=== PATIENT | female | born 1955 | race Caucasian/White ===

== ENCOUNTER 2016-10-17 19:09 | Inpatient (IN) | payer MEDICAID ==
[~2016-10-17] VITALS: Ht 165.1 cm; Wt 69.3 kg
--- NOTE | ~2016-10-17 | OP ---
PATIENT NAME: NICO AGUILAR MEDICAL RECORD: [id number] :51 LOCATION:D.M2 D.2108 ADMISSION DATE:10/17/16 SURGEON: CASEY BECKFORD MD DATE OF OPERATION: 10/28/2016 PREOPERATIVE DIAGNOSIS: End-stage renal disease. POSTOPERATIVE DIAGNOSIS: End-stage renal disease. OPERATION PERFORMED: Implantation of PTFE left forearm looped AV graft between the brachial artery and basilic vein. SURGEON: Casey Beckford MD. ANESTHESIA: General via LMA per 3RD MATE and Dr. Cano. REFERRING PHYSICIAN: Sergo Wilder MD. PREOPERATIVE NOTE: Ms. Aguilar is a 61-year-old -[place] female, who has suffered terrible effects of CVA and presented with uremia and was started on dialysis this hospitalization with a tunneled central catheter. I was asked to implant a graft today. This patient has severe contractures of the legs, knees and hips and particularly of the right arm, shoulder and elbow. The left arm has severe contractures of the shoulder and elbow, but probably is usable for dialysis access if we can get a graft there. It will not be possible in this patient to place an access on the axillary veins because of this contracture problem. Noted that the patient does have dilated superficial veins in the arm consistent with some degree of venous hypertension of unknown etiology at this point. PROCEDURE IN DETAIL: Under anesthesia in supine position, the patient was prepped and draped in sterile manner. The arm was abducted at the shoulder as much as possible with continuous gentle traction. The elbow was straightened as much as possible in a similar manner. I examined her with ultrasound using nitroglycerin topical ointment and a proximal venous tourniquet and noted she had rather ample cephalic and basilic venous systems with large median cubital veins. The brachial artery was smaller and thick walled. I thought at first that I might be able to actually just do a brachial artery cephalic vein in the arterial venous fistula. I made a transverse incision across the antecubital space and mobilized the artery and mobilized the vein with the vein went into intense spasm and I eventually abandoned that, it was resected and its stump ligated with 3-0 Vicryl. Medial dissection exposed a very large basilic vein, which joined with a median cubital vein at the antecubital level. I exposed that basilic vein and controlled with Silastic loops. I chose a 4-7 mm Impra PTFE graft with standard wall thickness and no supporting outer rings. I beveled the venous end and anastomosed it end-to-side to the vein with running 6-0 Prolene. I made a counter incision down near the wrist and placed the graft in a subcutaneous tunnel and back in the antecubital space, I occluded the artery with Silastic loops, opened the artery and flushed it proximally and distally with heparinized saline. The 4-mm diameter portion of the graft was shortened and beveled and anastomosed end-to-side to the artery with running 6-0 Prolene. Fibrin glue was used to seal that suture line. With release of clamps and loops, excellent flow immediately developed in the new AV graft. Doppler examination demonstrated continuous pulsatile flow in the proximal brachial OPERATIVE REPORT [id number] NICO AGUILAR artery. The distal brachial artery exhibited damped monophasic flow, which did improve considerably with digital occlusion of the graft. The radial artery at the wrist with the graft occluded had pretty good pulsatile flow and a patent palmar arch. This was severely diminished with release of the occlusion and filling of the graft. I am concerned this patient may have a problem with distal ischemia or steal syndrome and will need to be observed for that. The patient's wounds were irrigated with Ancef/gentamicin solution, irrigated and infiltrated with 0.25% Marcaine without epinephrine. The wounds were closed with interrupted inverted 3-0 Vicryl and running intracuticular 4-0 Monocryl and Dermabond glue. They were dressed with Maxorb Ag, Tegaderm and Cavilon skin prep. The patient was then awakened and taken to the recovery room with a functioning AV graft. All sponges, instruments and needles were accounted for. Blood loss was insignificant and unreplaced. No drain was used and no surgical specimen was submitted for histopathology. PLAN: The patient will resume her preoperative medications, diet and dialysis schedule and can be discharged per nephrology when she is believed to reach a maximal hospital benefit. Her wounds can be checked in dialysis and I see no reason for her to have to be brought back to my office other than p.r.n. The initial waterproof dressings should be left in place if possible for 7-10 days. After that, they are either removed or fall off and the wounds should be washed daily with Hibiclens and covered with clean and dry gauze. The loop fistula can be used in 2-3 weeks at the discretion of her ski patrol. TRANSINT:[id number] Voice Confirmation ID: [id number] DOCUMENT ID: [id number] CASEY BECKFORD MD CC: [id number] DICTATION DATE: 10/28/161638 CAR DELIVERER: 10/28/16 221 ADM IN [facility] [address] [place] [address]
[2016-10-17 19:00] VITALS: BP 172/91
[2016-10-17] MEDS ORDERED: BUSPAR 15 MG TA15 MG PO (19:44)
[2016-10-17] MEDS ORDERED: LIPITOR20 MG PO (19:44)
[2016-10-17] MEDS ORDERED: GLIMEPIRIDE2 MG PO (19:45)
[2016-10-17] MEDS ORDERED: PLAVIX75 MG PO (19:45)
[2016-10-17] MEDS ORDERED: NORVASC5 MG PO (19:45)
[2016-10-17] MEDS ORDERED: BAYER CHEWABLE81 MG PO (19:46)
[2016-10-17] MEDS ORDERED: PRAVACHOL20 MG (19:46)
[2016-10-17 20:21] LABS: BASOPHILS 0.3 % (0-2); HEMATOCRIT 20.6 % (36.0-48.0); IMMATURE GRANULOCYTES 0.3 % (0-5); LYMPHOCYTES 34.3 % (15-50); MCH 28.9 pg (26.0-34.0); MCHC 31.6 g/dL (31.0-37.0); MCV 91.6 fL (80.0-100.0); MONOCYTES 9.3 % (2-11); NEUTROPHILS 54.8 % (40-80); PLATELET COUNT 206 10x3/uL (130-400); RBC 2.25 10x6/uL (4.00-5.40); WBC 5.8 10x3/uL (4.8-10.8)
[2016-10-17 20:35] LABS: ANION GAP 21.4 mmol/L (8-16); CARBON DIOXIDE 20.3 mmol/L (21.0-32.0); CREATININE - SERUM 8.8 mg/dL (0.6-1.3); POTASSIUM - SERUM 4.7 mmol/L (3.5-5.1)
[2016-10-17 20:40] LABS: HEMOGLOBIN 6.5 g/dL (12-16)
[2016-10-17 20:45] LABS: CALCIUM 4.3 mg/dL (8.5-10.1)
[2016-10-18 03:48] LABS: APPEARANCE CLOUDY (CLEAR); BACTERIA MANY /hpf (NONE SEEN); BILIRUBIN NEGATIVE (NEGATIVE); COLOR YELLOW (YELLOW); EPITHELIAL CELLS 0-5 /hpf (0-5); GLUCOSE 50 mg/dL (NEGATIVE); KETONE SMALL mg/dL (NEGATIVE); LEUKOCYTE ESTERASE 2+ (NEGATIVE); NITRITE NEGATIVE (NEGATIVE); PROTEIN 1+ mg/dL (NEGATIVE); UROBILINOGEN NORMAL (NORMAL); WHITE CELLS - URINE >50 /hpf (0-5)
[2016-10-18 03:49] LABS: GRANULAR CAST OCC /lpf (NONE SEEN)
[2016-10-18 05:52] LABS: BASOPHILS 0.4 % (0-2); EOSINOPHILS 1.7 % (0-7); IMMATURE GRANULOCYTES 0.2 % (0-5); LYMPHOCYTES 35.2 % (15-50); MCH 28.8 pg (26.0-34.0); MCHC 31.6 g/dL (31.0-37.0); MCV 91.2 fL (80.0-100.0); MEAN PLATELET VOLUME 10.2 fL (7.4-10.4); MONOCYTES 8.4 % (2-11); NEUTROPHILS 54.1 % (40-80); PLATELET COUNT 195 10x3/uL (130-400); RBC 2.05 10x6/uL (4.00-5.40); WBC 4.8 10x3/uL (4.8-10.8)
[2016-10-18 06:03] LABS: HEMATOCRIT 18.7 % (36.0-48.0); HEMOGLOBIN 5.9 g/dL (12-16)
[2016-10-18 06:11] LABS: INR 1.21 (0.85-1.17); PROTIME 15.2 SECONDS (11.6-15.0)
[2016-10-18 06:14] LABS: ANION GAP 19.9 mmol/L (8-16); CARBON DIOXIDE 19.1 mmol/L (21.0-32.0); CREATININE - SERUM 8.6 mg/dL (0.6-1.3); PHOSPHOROUS 7.6 mg/dL (2.5-4.9)
[2016-10-18 06:18] LABS: CALCIUM 4.5 mg/dL (8.5-10.1)
[2016-10-18 07:33] VITALS: BP 149/62
[2016-10-18 08:00] VITALS: BP 146/68
[2016-10-18 09:31] VITALS: Ht 165.1 cm; Wt 69.3 kg
[2016-10-18 19:33] LABS: HEMATOCRIT 25.6 % (36.0-48.0); HEMOGLOBIN 8.4 g/dL (12-16)
[2016-10-18 20:00] VITALS: BP 164/71
[2016-10-19] VITALS: BP 153/70
[2016-10-19 04:00] VITALS: BP 134/66
[2016-10-19 04:58] LABS: BASOPHILS 0.1 % (0-2); EOSINOPHILS 1.4 % (0-7); HEMATOCRIT 25.1 % (36.0-48.0); HEMOGLOBIN 8.2 g/dL (12-16); IMMATURE GRANULOCYTES 0.4 % (0-5); MCH 28.8 pg (26.0-34.0); MCHC 32.7 g/dL (31.0-37.0); MCV 88.1 fL (80.0-100.0); MEAN PLATELET VOLUME 9.8 fL (7.4-10.4); MONOCYTES 6.7 % (2-11); NEUTROPHILS 60.4 % (40-80); PLATELET COUNT 200 10x3/uL (130-400); RBC 2.85 10x6/uL (4.00-5.40); RDW 16.1 % (11.5-14.5)
[2016-10-19 05:28] LABS: CARBON DIOXIDE 17.8 mmol/L (21.0-32.0); CREATININE - SERUM 8.5 mg/dL (0.6-1.3); PHOSPHOROUS 8.3 mg/dL (2.5-4.9); POTASSIUM - SERUM 3.8 mmol/L (3.5-5.1)
[2016-10-19 05:32] LABS: CALCIUM 4.7 mg/dL (8.5-10.1)
[2016-10-19 08:00] VITALS: BP 157/66
[2016-10-19 13:59] VITALS: BP 129/74
[2016-10-19 22:11] VITALS: BP 161/85
[2016-10-20] VITALS: BP 163/80
[2016-10-20 04:55] LABS: BASOPHILS 0.5 % (0-2); HEMATOCRIT 26.1 % (36.0-48.0); HEMOGLOBIN 8.5 g/dL (12-16); IMMATURE GRANULOCYTES 0.4 % (0-5); LYMPHOCYTES 23.8 % (15-50); MCH 28.8 pg (26.0-34.0); MCHC 32.6 g/dL (31.0-37.0); MCV 88.5 fL (80.0-100.0); MEAN PLATELET VOLUME 9.5 fL (7.4-10.4); MONOCYTES 7.3 % (2-11); PLATELET COUNT 196 10x3/uL (130-400); RBC 2.95 10x6/uL (4.00-5.40); RDW 15.7 % (11.5-14.5); WBC 7.7 10x3/uL (4.8-10.8)
[2016-10-20 05:10] LABS: CREATININE - SERUM 6.9 mg/dL (0.6-1.3); POTASSIUM - SERUM 3.7 mmol/L (3.5-5.1)
[2016-10-20 05:22] LABS: ALBUMIN 2.6 g/dL (3.4-5.0)
[2016-10-20 05:39] LABS: ANION GAP 16.3 mmol/L (8-16); CARBON DIOXIDE 25.4 mmol/L (21.0-32.0)
[2016-10-20 05:40] LABS: CALCIUM 5.7 mg/dL (8.5-10.1)
[2016-10-20 06:17] VITALS: BP 140/67
[2016-10-20 08:45] VITALS: BP 149/66
[2016-10-20 17:26] VITALS: BP 156/66
[2016-10-20 19:45] VITALS: BP 115/76
[2016-10-21 00:29] VITALS: BP 144/80
[2016-10-21 03:09] LABS: HEPATITIS C ANTIBODY 0.2 (0.0-0.9)
[2016-10-21 05:52] LABS: BASOPHILS 0.4 % (0-2); EOSINOPHILS 1.2 % (0-7); HEMATOCRIT 26.7 % (36.0-48.0); HEMOGLOBIN 8.5 g/dL (12-16); IMMATURE GRANULOCYTES 0.1 % (0-5); LYMPHOCYTES 31.4 % (15-50); MCH 28.5 pg (26.0-34.0); MCHC 31.8 g/dL (31.0-37.0); MCV 89.6 fL (80.0-100.0); MEAN PLATELET VOLUME 10.2 fL (7.4-10.4); MONOCYTES 9.6 % (2-11); NEUTROPHILS 57.3 % (40-80); PLATELET COUNT 206 10x3/uL (130-400); RBC 2.98 10x6/uL (4.00-5.40); RDW 15.2 % (11.5-14.5); WBC 7.5 10x3/uL (4.8-10.8)
[2016-10-21 06:14] LABS: ANION GAP 14.7 mmol/L (8-16); CARBON DIOXIDE 27.6 mmol/L (21.0-32.0); PHOSPHOROUS 5.2 mg/dL (2.5-4.9); POTASSIUM - SERUM 3.3 mmol/L (3.5-5.1)
[2016-10-21 06:30] LABS: CREATININE - SERUM 4.8 mg/dL (0.6-1.3)
[2016-10-21 06:31] LABS: CALCIUM 6.4 mg/dL (8.5-10.1)
[2016-10-21 09:12] VITALS: BP 147/88
[2016-10-21 15:18] VITALS: BP 114/47
[2016-10-21 20:18] VITALS: BP 146/79
[2016-10-21 23:57] VITALS: BP 149/67
[2016-10-22 03:52] VITALS: BP 129/66
[2016-10-22 05:27] LABS: BASOPHILS 0.2 % (0-2); EOSINOPHILS 1.4 % (0-7); HEMATOCRIT 27.8 % (36.0-48.0); HEMOGLOBIN 8.8 g/dL (12-16); IMMATURE GRANULOCYTES 0.2 % (0-5); LYMPHOCYTES 27.5 % (15-50); MCH 28.5 pg (26.0-34.0); MCHC 31.7 g/dL (31.0-37.0); MEAN PLATELET VOLUME 9.9 fL (7.4-10.4); NEUTROPHILS 61.7 % (40-80); PLATELET COUNT 201 10x3/uL (130-400); RBC 3.09 10x6/uL (4.00-5.40); RDW 14.8 % (11.5-14.5); WBC 6.2 10x3/uL (4.8-10.8)
[2016-10-22 05:49] LABS: ANION GAP 11.2 mmol/L (8-16); CALCIUM 7.3 mg/dL (8.5-10.1); CREATININE - SERUM 4.2 mg/dL (0.6-1.3); PHOSPHOROUS 4.6 mg/dL (2.5-4.9); POTASSIUM - SERUM 3.2 mmol/L (3.5-5.1)
[2016-10-22 07:30] VITALS: BP 96/41
[2016-10-22 16:30] VITALS: BP 140/60
[2016-10-22 19:00] VITALS: BP 146/77
[2016-10-23] VITALS: BP 166/77
[2016-10-23 04:00] VITALS: BP 103/76
[2016-10-23 08:00] VITALS: BP 153/67
[2016-10-23 12:00] VITALS: BP 98/44
[2016-10-23 16:00] VITALS: BP 119/49
[2016-10-23 20:00] VITALS: BP 147/57
[2016-10-24] VITALS: BP 155/69
[2016-10-24 04:00] VITALS: BP 150/60
[2016-10-24 08:00] VITALS: BP 146/84
[2016-10-24 08:23] LABS: BASOPHILS 0.2 % (0-2); EOSINOPHILS 0.3 % (0-7); HEMOGLOBIN 9.4 g/dL (12-16); IMMATURE GRANULOCYTES 0.5 % (0-5); LYMPHOCYTES 15.4 % (15-50); MCH 28.7 pg (26.0-34.0); MCHC 31.3 g/dL (31.0-37.0); MCV 91.7 fL (80.0-100.0); MEAN PLATELET VOLUME 10.5 fL (7.4-10.4); MONOCYTES 5.4 % (2-11); NEUTROPHILS 78.2 % (40-80); PLATELET COUNT 222 10x3/uL (130-400); RBC 3.27 10x6/uL (4.00-5.40); RDW 14.9 % (11.5-14.5); WBC 8.8 10x3/uL (4.8-10.8)
[2016-10-24 08:49] LABS: ANION GAP 14.8 mmol/L (8-16); CARBON DIOXIDE 27.3 mmol/L (21.0-32.0); CREATININE - SERUM 5.4 mg/dL (0.6-1.3); POTASSIUM - SERUM 3.1 mmol/L (3.5-5.1)
[2016-10-24 08:58] LABS: CALCIUM 6.8 mg/dL (8.5-10.1)
[2016-10-24 16:01] VITALS: BP 119/59
[2016-10-24 21:42] VITALS: BP 146/71
[2016-10-25 00:56] VITALS: BP 139/58
[2016-10-25 04:00] VITALS: BP 132/52
[2016-10-25 04:46] LABS: BASOPHILS 0.1 % (0-2); EOSINOPHILS 0.4 % (0-7); HEMATOCRIT 28.4 % (36.0-48.0); HEMOGLOBIN 8.8 g/dL (12-16); IMMATURE GRANULOCYTES 0.2 % (0-5); LYMPHOCYTES 15.7 % (15-50); MCH 28.4 pg (26.0-34.0); MCV 91.6 fL (80.0-100.0); MEAN PLATELET VOLUME 9.7 fL (7.4-10.4); MONOCYTES 6.3 % (2-11); NEUTROPHILS 77.3 % (40-80); PLATELET COUNT 200 10x3/uL (130-400); RDW 14.8 % (11.5-14.5); WBC 10.1 10x3/uL (4.8-10.8)
[2016-10-25 04:59] LABS: CARBON DIOXIDE 28.9 mmol/L (21.0-32.0); CREATININE - SERUM 5.3 mg/dL (0.6-1.3); PHOSPHOROUS 3.9 mg/dL (2.5-4.9)
[2016-10-25 05:14] LABS: ANION GAP 11.9 mmol/L (8-16); CALCIUM 6.7 mg/dL (8.5-10.1); POTASSIUM - SERUM 2.8 mmol/L (3.5-5.1)
[2016-10-25 09:30] VITALS: BP 144/67
[2016-10-25 16:11] VITALS: BP 145/52
[2016-10-25 17:43] VITALS: BP 161/74
[2016-10-25 20:00] VITALS: BP 125/62
[2016-10-26] VITALS: BP 120/66
[2016-10-26 04:00] VITALS: BP 120/58
[2016-10-26 04:37] LABS: BASOPHILS 0.3 % (0-2); EOSINOPHILS 1.3 % (0-7); HEMATOCRIT 26.2 % (36.0-48.0); HEMOGLOBIN 8.1 g/dL (12-16); IMMATURE GRANULOCYTES 0.3 % (0-5); LYMPHOCYTES 27.7 % (15-50); MCH 28.5 pg (26.0-34.0); MCHC 30.9 g/dL (31.0-37.0); MCV 92.3 fL (80.0-100.0); MEAN PLATELET VOLUME 9.9 fL (7.4-10.4); MONOCYTES 6.1 % (2-11); NEUTROPHILS 64.3 % (40-80); PLATELET COUNT 227 10x3/uL (130-400); RBC 2.84 10x6/uL (4.00-5.40); RDW 14.9 % (11.5-14.5); WBC 7.9 10x3/uL (4.8-10.8)
[2016-10-26 04:52] LABS: ANION GAP 16.8 mmol/L (8-16); CARBON DIOXIDE 25.3 mmol/L (21.0-32.0); CREATININE - SERUM 6.3 mg/dL (0.6-1.3); PHOSPHOROUS 4.1 mg/dL (2.5-4.9); POTASSIUM - SERUM 3.1 mmol/L (3.5-5.1)
[2016-10-26 04:53] LABS: CALCIUM 6.4 mg/dL (8.5-10.1)
[2016-10-26 08:15] VITALS: BP 128/66
[2016-10-26 12:08] VITALS: BP 117/64
[2016-10-26 15:49] VITALS: BP 151/67
[2016-10-26 20:00] VITALS: BP 120/61
[2016-10-27] VITALS: BP 119/59
[2016-10-27 04:00] VITALS: BP 113/65
[2016-10-27 05:11] LABS: ANION GAP 19.8 mmol/L (8-16); CALCIUM 7.4 mg/dL (8.5-10.1); CARBON DIOXIDE 22.5 mmol/L (21.0-32.0); CREATININE - SERUM 7.3 mg/dL (0.6-1.3)
[2016-10-27 05:16] LABS: POTASSIUM - SERUM 5.3 mmol/L (3.5-5.1)
[2016-10-27 05:20] LABS: BASOPHILS 0.7 % (0-2); EOSINOPHILS 1.4 % (0-7); HEMATOCRIT 24.6 % (36.0-48.0); HEMOGLOBIN 7.7 g/dL (12-16); IMMATURE GRANULOCYTES 1.3 % (0-5); LYMPHOCYTES 33.3 % (15-50); MCH 28.6 pg (26.0-34.0); MCHC 31.3 g/dL (31.0-37.0); MCV 91.4 fL (80.0-100.0); MEAN PLATELET VOLUME 9.8 fL (7.4-10.4); MONOCYTES 7.7 % (2-11); NEUTROPHILS 55.6 % (40-80); PLATELET COUNT 235 10x3/uL (130-400); RBC 2.69 10x6/uL (4.00-5.40); RDW 15.1 % (11.5-14.5); WBC 9.1 10x3/uL (4.8-10.8)
[2016-10-27 07:55] VITALS: BP 128/45
[2016-10-27 11:57] LABS: % SATURATION 24 % (15-55); IRON 39 ug/dl (35-150); TOTAL IRON BIND CAPACITY 158 ug/dl (260-445); UNSAT IRON BIND CAPACITY 119 ug/dl (150-375)
[2016-10-27 16:00] VITALS: BP 156/71
[2016-10-27 19:00] VITALS: BP 157/63
[2016-10-28] VITALS: BP 151/45
[2016-10-28 05:34] LABS: BASOPHILS 0.4 % (0-2); EOSINOPHILS 1.3 % (0-7); HEMATOCRIT 25.5 % (36.0-48.0); IMMATURE GRANULOCYTES 0.4 % (0-5); LYMPHOCYTES 27.6 % (15-50); MCH 28.7 pg (26.0-34.0); MCHC 31.4 g/dL (31.0-37.0); MCV 91.4 fL (80.0-100.0); MEAN PLATELET VOLUME 9.9 fL (7.4-10.4); MONOCYTES 7.2 % (2-11); NEUTROPHILS 63.1 % (40-80); PLATELET COUNT 254 10x3/uL (130-400); RBC 2.79 10x6/uL (4.00-5.40); RDW 14.8 % (11.5-14.5); WBC 8.4 10x3/uL (4.8-10.8)
[2016-10-28 05:38] VITALS: BP 135/62
[2016-10-28 06:40] LABS: ANION GAP 13.9 mmol/L (8-16); CALCIUM 7.8 mg/dL (8.5-10.1); CARBON DIOXIDE 26.8 mmol/L (21.0-32.0); PHOSPHOROUS 4.9 mg/dL (2.5-4.9); POTASSIUM - SERUM 3.7 mmol/L (3.5-5.1)
[2016-10-28 08:22] LABS: FOLATE (FOLIC ACID) - SERUM 7.4 ng/mL (>3.0)
[2016-10-28 12:00] VITALS: BP 134/60
[2016-10-28 17:00] VITALS: BP 120/58
[2016-10-28 20:00] VITALS: BP 137/58
[2016-10-29] VITALS: BP 139/64
[2016-10-29 04:00] VITALS: BP 154/66
[2016-10-29 05:50] LABS: BASOPHILS 0.4 % (0-2); EOSINOPHILS 1.4 % (0-7); HEMATOCRIT 25.7 % (36.0-48.0); HEMOGLOBIN 8.1 g/dL (12-16); IMMATURE GRANULOCYTES 0.3 % (0-5); LYMPHOCYTES 26.5 % (15-50); MCH 29.6 pg (26.0-34.0); MCHC 31.5 g/dL (31.0-37.0); MEAN PLATELET VOLUME 9.2 fL (7.4-10.4); NEUTROPHILS 63.4 % (40-80); PLATELET COUNT 249 10x3/uL (130-400); RBC 2.74 10x6/uL (4.00-5.40); RDW 15.4 % (11.5-14.5); WBC 7.7 10x3/uL (4.8-10.8)
[2016-10-29 05:51] LABS: MCV 93.8 fL (80.0-100.0)
[2016-10-29 06:10] LABS: ANION GAP 13.8 mmol/L (8-16); CALCIUM 7.3 mg/dL (8.5-10.1); CARBON DIOXIDE 26.5 mmol/L (21.0-32.0); CREATININE - SERUM 6.4 mg/dL (0.6-1.3); PHOSPHOROUS 6.2 mg/dL (2.5-4.9)
[2016-10-29 06:11] LABS: POTASSIUM - SERUM 4.3 mmol/L (3.5-5.1)
[2016-10-29 08:10] VITALS: BP 177/78
[2016-10-29] MEDS ORDERED: TUMS500 MG PO (09:25)
[2016-10-29] MEDS ORDERED: ULTRACET TABLET1 TAB PO (09:37)
--- NOTE | 2016-10-29 09:43 | CN ---
PATIENT NAME:NICO GUSMAN MEDICAL RECORD: [id number] : 51 LOCATION:D. D.2108 ADMIT DATE: 10/17/16 ACCOUNT: [id number] CONSULTING PHYSICIAN: TIMMY CASTRO MD REFERRING PHYSICIAN: EWA CHRISTIANSON MD DATE OF CONSULTATION: 10/18/2016 Addendum I am going to ask to place a HemoSplit catheter. The patient has renal disease that is now at end-stage. The risks, possible complications and alternatives to the procedure were explained to the patient. She elects to proceed. Nothing aggravates. Nothing alleviates. The symptoms are mild. This is a consultation note addendum. For the typed portion of the consult note including the past medical and surgical history, allergies, social history, as well as current medications, please see the chart. REVIEW OF SYSTEMS: No nausea, no vomiting, no fever, no chills. Review of systems is negative other than as is described above. PHYSICAL EXAMINATION: GENERAL: The patient does not appear acutely ill. She does appear chronically ill. VITAL SIGNS: Reviewed. HEAD: External ears appear normal. EYES: Extraocular movements are intact. NECK: Trachea is midline. CHEST: No intercostal retractions. PULMONARY: Nonlabored, no stridor. ABDOMEN: No peritonitis with movement. INTEGUMENT: There is an intertriginous rash. BACK: Mild thoracic kyphosis. LYMPHATICS: No lymphangitic streaking of the exposed extremities. NEUROLOGIC: There is some evidence of loss of higher cortical function. PSYCHIATRIC: Normal affect. IMPRESSION: End-stage renal disease in need of access for hemodialysis. PLAN: Placement of HemoSplit catheter right versus left. The risks, possible complications and alternatives to procedure were explained to patient. TRANSINT:[id number] Voice Confirmation ID: [id number] DOCUMENT ID: [id number] TIMMY CASTRO MD at 0943 CC: [id number] DICTATION DATE: 10/19/16 172 SHOT TUBE MACHINE TENDER: 10/19/16 2112 ADM IN [place] [id number] [place] [address]
--- NOTE | 2016-10-29 09:43 | OP ---
PATIENT NAME: NICO GUSMAN MEDICAL RECORD: [id number] :51 LOCATION:D. D.2108 ADMISSION DATE:10/17/16 SURGEON: TIMMY CASTRO MD DATE OF OPERATION: 10/19/2016 PREOPERATIVE DIAGNOSIS: End-stage renal disease without access for hemodialysis. POSTOPERATIVE DIAGNOSIS: End-stage renal disease without access for hemodialysis. PROCEDURE: 1. Insertion of right 19-cm HemoSplit catheter (tunneled cuffed dual-lumen hemodialysis catheter) under fluoroscopic guidance. 2. Immediate surgeon interpretation of the fluoroscopic images. SURGEON: Timmy Castro M.D. DUMPMAN: None. BLOOD LOSS: Minimal. ANESTHESIA: General. COMPLICATIONS: None. The risks, possible complications and alternatives to the procedure were explained to the patient. She elects to proceed. No radiologist was present for this procedure. Static fluoroscopic images were obtained and are kept in the PACS system. The surgeon interpretation of the radiographic images is dictated within the body of this operative note. OPERATIVE COURSE: The patient was conveyed to the operating room electively on 10/19/2016. Right neck and right chest were sterilely prepped and draped. The patient was positioned in Trendelenburg position. I interrogated the right neck with a handheld ultrasound. I percutaneously accessed the right internal jugular vein on the first try. A guidewire passed easily. A small skin zahida was accomplished. A vessel dilator was used to dilate the subcutaneous tract. A counterincision was accomplished in the right anterior superior chest. I tunneled a HemoSplit catheter from the chest incision to the neck incision. A dilator sheath was placed over the wire. The dilator and wire were removed. The tips of the HemoSplit catheter were advanced and the peel-away sheath was removed. I then pulled back on the HemoSplit catheter to seat the cuff in the subcutaneous tissues. Both lumens flushed easily and aspirated dark, nonpulsatile blood. Both lumens of the HemoSplit catheter were then topped off with appropriate amount of concentrated heparin. The neck incision was closed with a horizontal mattress 3-0 Vicryl suture. The flange of the HemoSplit catheter was sutured to the underlying skin with 2-0 nylons. Sterile dressings were applied. The patient was then extubated and conveyed to post-anesthesia care unit where she was in a stable condition. OPERATIVE REPORT [id number] NICO GUSMAN TRANSINT:[id number] Voice Confirmation ID: [id number] DOCUMENT ID: [id number] TIMMY CASTRO MD at 0943 CC: EWA CHRISTIANSON MD [id number] DICTATION DATE: 10/19/161727 MEMBER OF THE LEGISLATIVE ASSEMBLY: 10/19/16 2212 ADM IN [place] [id number] [place] [address]
[2016-10-29 12:17] VITALS: BP 103/49
[2016-10-29 16:30] VITALS: BP 130/67
[2016-10-29 20:00] VITALS: BP 103/45
[2016-10-30] VITALS: BP 115/50
[2016-10-30 04:00] VITALS: BP 129/57
[2016-10-30 08:00] VITALS: BP 134/52
[2016-10-30 10:21] LABS: BASOPHILS 0.3 % (0-2); EOSINOPHILS 0.7 % (0-7); HEMATOCRIT 25.2 % (36.0-48.0); HEMOGLOBIN 7.7 g/dL (12-16); IMMATURE GRANULOCYTES 0.3 % (0-5); LYMPHOCYTES 26.3 % (15-50); MCH 28.7 pg (26.0-34.0); MCHC 30.6 g/dL (31.0-37.0); MEAN PLATELET VOLUME 9.4 fL (7.4-10.4); MONOCYTES 7.3 % (2-11); NEUTROPHILS 65.1 % (40-80); PLATELET COUNT 234 10x3/uL (130-400); RBC 2.68 10x6/uL (4.00-5.40); RDW 15.2 % (11.5-14.5); WBC 7.3 10x3/uL (4.8-10.8)
[2016-10-30 10:50] LABS: ANION GAP 15.6 mmol/L (8-16); CALCIUM 7.2 mg/dL (8.5-10.1); PHOSPHOROUS 6.4 mg/dL (2.5-4.9); POTASSIUM - SERUM 4.6 mmol/L (3.5-5.1)
[2016-10-30 10:54] LABS: CREATININE - SERUM 8.1 mg/dL (0.6-1.3)
[2016-10-30 12:00] VITALS: BP 105/46
[2016-10-30 20:00] VITALS: BP 142/58
[2016-10-31 04:00] VITALS: BP 150/67
[2016-10-31 05:48] LABS: BASOPHILS 0.1 % (0-2); EOSINOPHILS 0.6 % (0-7); HEMATOCRIT 26.2 % (36.0-48.0); HEMOGLOBIN 8.2 g/dL (12-16); IMMATURE GRANULOCYTES 0.4 % (0-5); LYMPHOCYTES 22.9 % (15-50); MCH 29.1 pg (26.0-34.0); MCHC 31.3 g/dL (31.0-37.0); MCV 92.9 fL (80.0-100.0); MEAN PLATELET VOLUME 9.5 fL (7.4-10.4); MONOCYTES 10.5 % (2-11); NEUTROPHILS 65.5 % (40-80); PLATELET COUNT 263 10x3/uL (130-400); RBC 2.82 10x6/uL (4.00-5.40); RDW 15.1 % (11.5-14.5); WBC 7.8 10x3/uL (4.8-10.8)
[2016-10-31 06:03] LABS: ANION GAP 13.5 mmol/L (8-16); CALCIUM 7.8 mg/dL (8.5-10.1); CARBON DIOXIDE 25.9 mmol/L (21.0-32.0); CREATININE - SERUM 7.8 mg/dL (0.6-1.3); PHOSPHOROUS 5.4 mg/dL (2.5-4.9); POTASSIUM - SERUM 4.4 mmol/L (3.5-5.1)
[2016-10-31 08:07] VITALS: BP 146/50
[2016-10-31 19:00] VITALS: BP 98/44
[2016-10-31 19:09] LABS: APPEARANCE HAZY (CLEAR); BILIRUBIN NEGATIVE (NEGATIVE); COLOR STRAW (YELLOW); GLUCOSE 250 mg/dL (NEGATIVE); KETONE NEGATIVE (NEGATIVE); LEUKOCYTE ESTERASE 1+ (NEGATIVE); NITRITE NEGATIVE (NEGATIVE); PROTEIN 3+ mg/dL (NEGATIVE); SPECIFIC GRAVITY 1.005 (1.005-1.020); UROBILINOGEN NORMAL (NORMAL)
[2016-10-31 19:11] LABS: BACTERIA FEW /hpf (NONE SEEN); EPITHELIAL CELLS 0-5 /hpf (0-5); RED CELLS - URINE OCC /hpf (0-5); WHITE CELLS - URINE 0-5 /hpf (0-5)
[2016-11-01] VITALS: BP 158/73
[2016-11-01 04:00] VITALS: BP 176/57
[2016-11-01 04:37] LABS: BASOPHILS 0.2 % (0-2); EOSINOPHILS 1.3 % (0-7); HEMATOCRIT 27.4 % (36.0-48.0); HEMOGLOBIN 8.5 g/dL (12-16); IMMATURE GRANULOCYTES 0.5 % (0-5); LYMPHOCYTES 30.6 % (15-50); MCV 93.5 fL (80.0-100.0); MEAN PLATELET VOLUME 9.6 fL (7.4-10.4); MONOCYTES 10.1 % (2-11); NEUTROPHILS 57.3 % (40-80); PLATELET COUNT 240 10x3/uL (130-400); RBC 2.93 10x6/uL (4.00-5.40); RDW 14.8 % (11.5-14.5); WBC 6.2 10x3/uL (4.8-10.8)
[2016-11-01 05:04] LABS: ANION GAP 10.9 mmol/L (8-16); CALCIUM 8.3 mg/dL (8.5-10.1); CARBON DIOXIDE 29.3 mmol/L (21.0-32.0); PHOSPHOROUS 4.4 mg/dL (2.5-4.9); POTASSIUM - SERUM 4.2 mmol/L (3.5-5.1)
[2016-11-01 08:00] VITALS: BP 135/60
[2016-11-01 16:00] VITALS: BP 141/60
[2016-11-01 19:00] VITALS: BP 133/66
[2016-11-02] VITALS: BP 135/57
[2016-11-02 04:23] VITALS: BP 176/65
[2016-11-02 04:53] LABS: BASOPHILS 0.3 % (0-2); EOSINOPHILS 1.5 % (0-7); HEMATOCRIT 28.5 % (36.0-48.0); HEMOGLOBIN 8.7 g/dL (12-16); IMMATURE GRANULOCYTES 0.3 % (0-5); LYMPHOCYTES 31.9 % (15-50); MCH 28.8 pg (26.0-34.0); MCHC 30.5 g/dL (31.0-37.0); MCV 94.4 fL (80.0-100.0); MEAN PLATELET VOLUME 9.3 fL (7.4-10.4); MONOCYTES 12.4 % (2-11); NEUTROPHILS 53.6 % (40-80); PLATELET COUNT 231 10x3/uL (130-400); RBC 3.02 10x6/uL (4.00-5.40); RDW 14.9 % (11.5-14.5); WBC 5.9 10x3/uL (4.8-10.8)
[2016-11-02 05:09] LABS: ANION GAP 13.2 mmol/L (8-16); CALCIUM 8.2 mg/dL (8.5-10.1); CARBON DIOXIDE 28.2 mmol/L (21.0-32.0); CREATININE - SERUM 5.7 mg/dL (0.6-1.3); PHOSPHOROUS 4.9 mg/dL (2.5-4.9); POTASSIUM - SERUM 4.4 mmol/L (3.5-5.1)
[2016-11-02 08:00] VITALS: BP 127/59
[2016-11-02 12:00] VITALS: BP 106/61
[2016-11-02 20:23] VITALS: BP 133/58
[2016-11-03 00:15] VITALS: BP 131/65
[2016-11-03 04:46] VITALS: BP 133/52
[2016-11-03 05:07] LABS: BASOPHILS 0.5 % (0-2); EOSINOPHILS 2.1 % (0-7); HEMATOCRIT 27.9 % (36.0-48.0); HEMOGLOBIN 8.6 g/dL (12-16); IMMATURE GRANULOCYTES 0.6 % (0-5); LYMPHOCYTES 33.1 % (15-50); MCH 29.1 pg (26.0-34.0); MCHC 30.8 g/dL (31.0-37.0); MCV 94.3 fL (80.0-100.0); MEAN PLATELET VOLUME 9.5 fL (7.4-10.4); MONOCYTES 9.2 % (2-11); NEUTROPHILS 54.5 % (40-80); RBC 2.96 10x6/uL (4.00-5.40); RDW 14.9 % (11.5-14.5); WBC 6.5 10x3/uL (4.8-10.8)
[2016-11-03 05:08] LABS: PLATELET COUNT 285 10x3/uL (130-400)
[2016-11-03 05:13] LABS: ANION GAP 12.7 mmol/L (8-16); CALCIUM 8.6 mg/dL (8.5-10.1); CARBON DIOXIDE 27.9 mmol/L (21.0-32.0); CREATININE - SERUM 6.6 mg/dL (0.6-1.3); POTASSIUM - SERUM 4.6 mmol/L (3.5-5.1)
[2016-11-03 08:36] VITALS: BP 132/50
[2016-11-03 11:38] VITALS: BP 161/65
[2016-11-03 15:43] VITALS: BP 121/56
== END 2016-11-03 19:17 | DRG 673 ==
LOC: UNDOADMIN 19:09 → D.M2 19:09
PROVIDERS: Internal Medicine; Internal Medicine Nephrology; Surgery; ADMIT Internal Medicine Nephrology
PROC: 5A1D60Z (ICD-10-PCS; 2016-10-18)
PROC: 03180KF Bypass Left Brachial Artery to Lower Arm Vein with Nonautologous Tissue Substitute, Open Approach (ICD-10-PCS; 2016-10-19)
PROC: B5131ZA Fluoroscopy of Right Jugular Veins using Low Osmolar Contrast, Guidance (ICD-10-PCS; 2016-10-19)
PROC: 05HM33Z Insertion of Infusion Device into Right Internal Jugular Vein, Percutaneous Approach (ICD-10-PCS; principal; 2016-10-19 12:45)
DX: I12.0 Hypertensive chronic kidney disease with stage 5 chronic kidney disease or end stage renal disease (principal); N18.6 End stage renal disease; N39.0 Urinary tract infection, site not specified; E78.5 Hyperlipidemia, unspecified; E87.6 Hypokalemia; D64.9 Anemia, unspecified; E83.51 Hypocalcemia; B96.20 Unspecified Escherichia coli [E. coli] as the cause of diseases classified elsewhere; B96.1 Klebsiella pneumoniae [K. pneumoniae] as the cause of diseases classified elsewhere; F03.90 Unspecified dementia, unspecified severity, without behavioral disturbance, psychotic disturbance, mood disturbance, and anxiety

== ENCOUNTER 2016-12-05 07:04 | Day surgery (SDC) | payer MEDICAID ==
--- NOTE | ~2016-12-05 | OP ---
PATIENT NAME: NICO AGUILAR MEDICAL RECORD: [id number] :51 LOCATION:DTED ADMISSION DATE: SURGEON: CASEY BECKFORD MD DATE OF OPERATION: 12/05/2016 PREOPERATIVE DIAGNOSES: End-stage renal disease and dependence upon hemodialysis and thrombosis of left forearm PTFE loop arteriovenous graft. POSTOPERATIVE DIAGNOSES: End-stage renal disease and dependence upon hemodialysis and thrombosis of left forearm PTFE loop arteriovenous graft, secondary to 95% stenosis at the venous anastomosis and a 99% stenosis at the arterial anastomosis. OPERATION PERFORMED: Fistulogram with 2 percutaneous accesses with micropuncture technique and ultrasound guidance, AngioJet mechanical thrombolysis and angioplasty of the arterial anastomosis. SURGEON: Casey Beckford MD ANESTHESIA: General by LMA per RAILROAD MECHANIC. REFERRING PHYSICIAN: Dr. Wilder. PREOPERATIVE NOTE: Ms. Aguilar is an unfortunate 61-year-old -[place] female, who was fpc confined and has extensive contractures of all extremities developing after a CVA. She began on dialysis recently with a catheter and I also recently operated and implanted a forearm loop PTFE graft on the left. That graft has failed before it could ever be use. She is brought back to the operating room today to see if we can fix it. DESCRIPTION OF PROCEDURE: Under anesthesia in supine position, the patient was prepped and draped in sterile manner. The arterial limb of the graft was accessed with ultrasound guidance and micropuncture technique and a 6-Spanish sheath inserted directed proximally. AngioJet mechanical thrombolysis was performed and contrast injection demonstrated an almost complete occlusion or about 99% stenosis at the arterial anastomosis. This was caused with some difficulty with Glidewire and glide catheter combination and dilated with a 4 mm diameter balloon. This was a drug impregnated or eluting balloon 4 mm x 60. I then inserted the second sheath and over a Glidewire, I performed a mechanical thrombolysis with the AngioJet of the body and venous limb of the graft. I injected contrast and noted what I thought was complete occlusion of the venous anastomosis, indeed this proved to be almost true, there was about a 95% stenosis and I was unable to cross it with a number of different wires and catheter combinations and techniques. At that point, I considered performing an open revision of the venous anastomosis, but the patient is really a very poor candidate for open surgery, especially here at the antecubital space with her severe contraction and I elected to leave it alone and to leave her for the time being at least, if not for long-term catheter dependent for her hemodialysis access. The patient had been given 2000 units of heparin at the beginning of the operation. This was not reversed. The entry sites were closed with 4-0 Prolene and hemostasis obtained with a period of direct pressure and sterile dressings of Tegaderm, Ultrafoam and Cavilon skin prep were applied. The patient was awakened and taken to the recovery room. Blood loss during the operation was about 10 cc, none was replaced intraoperatively. All sponges, OPERATIVE REPORT [id number] FALLS,NICO instruments and needles were accounted for. No drain was used and no surgical specimen was submitted for histopathology. PLAN: The patient will be discharged to return to her fpc today. She will continue her same renal diet and all of her same medications in routine dialysis schedule in [place]. She is at this time catheter dependent for hemodialysis access. TRANSINT:[id number] Voice Confirmation ID: [id number] DOCUMENT ID: [id number] CASEY BECKFORD MD CC: EWA WILDER MD [id number] DICTATION DATE: 12/05/16 1519 BANDER: 12/06/16 0025 [facility] 12/05/16 [place] [id number] [place] [id number]
[~2016-12-05 07:04] MED LIST: BAYER CHEWABLE81 MG PO; BUSPAR 15 MG TA15 MG PO; GLIMEPIRIDE2 MG PO; LIPITOR20 MG PO; NORVASC5 MG PO; PLAVIX75 MG PO; PRAVACHOL20 MG; TUMS500 MG PO; ULTRACET TABLET1 TAB PO
[2016-12-05 09:09] LABS: BASOPHILS 0.5 % (0-2); EOSINOPHILS 0.3 % (0-7); HEMATOCRIT 42.6 % (36.0-48.0); HEMOGLOBIN 12.7 g/dL (12-16); IMMATURE GRANULOCYTES 0.2 % (0-5); LYMPHOCYTES 22.9 % (15-50); MCH 28.4 pg (26.0-34.0); MCHC 29.8 g/dL (31.0-37.0); MCV 95.3 fL (80.0-100.0); MEAN PLATELET VOLUME 10.8 fL (7.4-10.4); MONOCYTES 6.7 % (2-11); NEUTROPHILS 69.4 % (40-80); PLATELET COUNT 197 10x3/uL (130-400); RBC 4.47 10x6/uL (4.00-5.40); RDW 15.4 % (11.5-14.5)
[2016-12-05 09:14] LABS: APTT 26.9 SECONDS (22.8-39.4); INR 1.16 (0.85-1.17); PROTIME 14.7 SECONDS (11.6-15.0)
[2016-12-05 09:22] LABS: ANION GAP 18.7 mmol/L (8-16); CALCIUM 8.6 mg/dL (8.5-10.1); CARBON DIOXIDE 25.4 mmol/L (21.0-32.0); CREATININE - SERUM 4.8 mg/dL (0.6-1.3); POTASSIUM - SERUM 5.1 mmol/L (3.5-5.1)
[2016-12-05] MEDS ORDERED: TUMS500 MG PO (10:08)
[2016-12-05] MEDS ORDERED: APAP325 MG PO (10:10)
[2016-12-05 10:25] VITALS: Ht 165.1 cm
--- NOTE | 2016-12-05 18:56 | NUR ---
3325 LT ARM DRESSING SCNT AMT TO DRESSING. GOOD BRUIT AND THRILL. DENIES ANY NEEDS TOLERATED DIET. FRIEND FROM [facility] HERE TAKIN CARE OF HER.
--- NOTE | 2016-12-05 19:22 | NUR ---
1758 FLUSHED HEMISPLIT WITH SALINE AND HEPARIN PER AMOUNT ON CATHETER. WENT OVER DISCHARGE INSTRUCTIONS WOTH FRIENDS AND VERBALLY UNDERSTANDS.
--- NOTE | 2016-12-05 19:24 | NUR ---
1710 TO HOME WITH FRIEND TO RETIREMENT.
== END 2016-12-05 17:10 ==
LOC: D.OPS 07:04
PROVIDERS: Anesthesiology
DX: T82.868A Thrombosis due to vascular prosthetic devices, implants and grafts, initial encounter (principal); Y83.8 Other surgical procedures as the cause of abnormal reaction of the patient, or of later complication, without mention of misadventure at the time of the procedure; N18.6 End stage renal disease; Z99.2 Dependence on renal dialysis

== ENCOUNTER 2017-11-27 22:29 | Inpatient (IN) | payer MEDICAID ==
[~2017-11-27] VITALS: Ht 160 cm; Wt 43.0 kg
--- NOTE | ~2017-11-27 | OP ---
PATIENT NAME: NICO GUSMAN MEDICAL RECORD: [id number] :51 LOCATION:D.M2 D.2137 ADMISSION DATE:11/27/17 SURGEON: LIAM MILLAN MD DATE OF OPERATION: 12/08/2017 PREOPERATIVE DIAGNOSES: 1. Malnutrition with a low p.o. intake. 2. End-stage renal disease. 3. Diabetes mellitus. 4. Metabolic encephalopathy. 5. Functional quadriplegia. 6. Congestive heart failure. POSTOPERATIVE DIAGNOSES: 1. Malnutrition with a low p.o. intake. 2. End-stage renal disease. 3. Diabetes mellitus. 4. Metabolic encephalopathy. 5. Functional quadriplegia. 6. Congestive heart failure. PROCEDURE: PEG tube placement. SURGEON: Liam Millan MD REPORT OF PROCEDURE: An Olympus endoscope was advanced through the patient's mouth and esophagus into the stomach. The stomach was insufflated. We found an area on the antrum of the stomach to house our PEG tube. The abdomen was prepped and a total of 5 cc of 1% lidocaine was infused. A skin incision was then made with an 11 blade and an Angiocath needle was inserted through the abdominal wall into the gastric lumen. Wire was advanced through the Angiocath and was grasped with an Endo snare. This wire and snare were pulled back through the mouth and esophagus. The wire was then affixed to the PEG tube and the PEG tube was pulled through the mouth and esophagus and through the abdominal wall until it rested in good position at 3 cm at the skin. We reinserted the endoscope and saw there was no sign of any active bleeding. At this point, the insufflation and the scope were removed. COMPLICATIONS: None. CONDITION: Stable. ANESTHESIA: TIVA. BLOOD LOSS: Minimal. TRANSINT:[id number] Voice Confirmation ID: [id number] DOCUMENT ID: [id number] OPERATIVE REPORT [id number] NICO GUSMAN LIAM MILLAN MD at 1228 CC: [id number] DICTATION DATE: 12/08/17 1038 FIRE CHIEF DEPUTY: 12/08/17 1133 ADM IN [place] [address] [place] [address]
[~2017-11-27 22:29] MED LIST changes: +APAP325 MG PO
[2017-11-27 23:00] VITALS: BP 121/62; BMI 18.5
[2017-11-28] VITALS (64 sets, daily range): BP systolic 67–169; BP diastolic 29–99; Ht 160 cm; Wt 43.0 kg
[2017-11-28 01:21] LABS: BILIRUBIN - TOTAL 0.59 mg/dL (0.2-1.3); CARBON DIOXIDE 15.4 mmol/L (21.0-32.0); PROTEIN - SERUM 8.5 g/dL (6.4-8.2)
[2017-11-28 01:23] LABS: ANION GAP 38.7 mmol/L (8-16); POTASSIUM - SERUM 7.1 mmol/L (3.5-5.1)
[2017-11-28] MEDS ORDERED: REMERON15 MG PO (01:47)
[2017-11-28] MEDS ORDERED: PLAVIX75 MG PO (01:48)
[2017-11-28] MEDS ORDERED: PROTONIX20 MG PO (01:48)
[2017-11-28 01:53] LABS: HEMATOCRIT 37.7 % (36.0-48.0); MCH 29.5 pg (26.0-34.0); MCHC 31.8 g/dL (31.0-37.0); MCV 92.6 fL (80.0-100.0); MEAN PLATELET VOLUME 10.7 fL (7.4-10.4); PLATELET COUNT 270 10x3/uL (130-400); RBC 4.07 10x6/uL (4.00-5.40); RDW 17.9 % (11.5-14.5); WBC 22.3 10x3/uL (4.8-10.8)
[2017-11-28 01:54] LABS: LYMPHOCYTES 23 % (15-50); MONOCYTES 4 % (2-11); NEUTROPHILS 63 % (40-80); PLATELET ESTIMATE NORMAL
[2017-11-28] MEDS ORDERED: CEFTRIAXONE1 G/VIAL IM (01:55)
[2017-11-28] MEDS ORDERED: ENULOSE10 G/15 ML PO (01:57)
[2017-11-28] MEDS ORDERED: IMODIUM2 MG PO (02:04)
[2017-11-28] MEDS ORDERED: MEGACE400 MG/10 PO (02:05)
[2017-11-28 02:21] LABS: ALBUMIN 2.5 g/dL (3.4-5.0); CALCIUM 9.6 mg/dL (8.5-10.1); CREATININE - SERUM 10.4 mg/dL (0.6-1.3)
[2017-11-28 08:32] LABS: ANION GAP 32.8 mmol/L (8-16); CALCIUM 9.7 mg/dL (8.5-10.1); CARBON DIOXIDE 21.1 mmol/L (21.0-32.0); CREATININE - SERUM 10.5 mg/dL (0.6-1.3); POTASSIUM - SERUM 5.9 mmol/L (3.5-5.1)
[2017-11-28 14:03] LABS: HEMATOCRIT 30.5 % (36.0-48.0); HEMOGLOBIN 9.3 g/dL (12-16); MCH 28.5 pg (26.0-34.0); MCHC 30.5 g/dL (31.0-37.0); MCV 93.6 fL (80.0-100.0); MEAN PLATELET VOLUME 10.7 fL (7.4-10.4); PLATELET COUNT 306 10x3/uL (130-400); RBC 3.26 10x6/uL (4.00-5.40); RDW 18.2 % (11.5-14.5)
[2017-11-28 14:33] LABS: MAGNESIUM - SERUM 2.2 mg/dL (1.8-2.4)
[2017-11-28 14:54] LABS: LYMPHOCYTES 13 % (15-50); NEUTROPHILS 75 % (40-80)
[2017-11-28 14:57] LABS: PLATELET ESTIMATE NORMAL
[2017-11-28 14:58] LABS: PHOSPHOROUS 9.8 mg/dL (2.5-4.9); POIKILOCYTOSIS 1+; POLYCHROMASIA OCC; ROULEAUX OCC
[2017-11-29] VITALS (93 sets, daily range): BP systolic 71–137; BP diastolic 44–567
[2017-11-29 05:59] LABS: EOSINOPHILS 0.6 % (0-7); HEMATOCRIT 29.2 % (36.0-48.0); HEMOGLOBIN 9.2 g/dL (12-16); IMMATURE GRANULOCYTES 8.4 % (0-5); LYMPHOCYTES 8.8 % (15-50); MCH 28.6 pg (26.0-34.0); MCHC 31.5 g/dL (31.0-37.0); MCV 90.7 fL (80.0-100.0); MEAN PLATELET VOLUME 10.3 fL (7.4-10.4); MONOCYTES 4.8 % (2-11); NEUTROPHILS 76.4 % (40-80); PLATELET COUNT 284 10x3/uL (130-400); RBC 3.22 10x6/uL (4.00-5.40); RDW 18.1 % (11.5-14.5); WBC 20.3 10x3/uL (4.8-10.8)
[2017-11-29 06:25] LABS: ALBUMIN 2.2 g/dL (3.4-5.0); BILIRUBIN - TOTAL 0.44 mg/dL (0.2-1.3)
[2017-11-29 06:34] LABS: ANION GAP 22.9 mmol/L (8-16); CARBON DIOXIDE 26.6 mmol/L (21.0-32.0); CREATININE - SERUM 6.7 mg/dL (0.6-1.3); MAGNESIUM - SERUM 1.6 mg/dL (1.8-2.4); PHOSPHOROUS 7.2 mg/dL (2.5-4.9); POTASSIUM - SERUM 4.5 mmol/L (3.5-5.1)
[2017-11-29 06:36] LABS: CALCIUM 6.7 mg/dL (8.5-10.1); PROTEIN - SERUM 6.3 g/dL (6.4-8.2)
[2017-11-30] VITALS (89 sets, daily range): BP systolic 70–180; BP diastolic 35–127
[2017-11-30 05:11] LABS: BASOPHILS 0.3 % (0-2); EOSINOPHILS 0.4 % (0-7); HEMOGLOBIN 9.8 g/dL (12-16); IMMATURE GRANULOCYTES 5.8 % (0-5); LYMPHOCYTES 11.2 % (15-50); MCH 28.5 pg (26.0-34.0); MCHC 31.6 g/dL (31.0-37.0); MCV 90.1 fL (80.0-100.0); MEAN PLATELET VOLUME 10.8 fL (7.4-10.4); MONOCYTES 4.6 % (2-11); NEUTROPHILS 77.7 % (40-80); PLATELET COUNT 303 10x3/uL (130-400); RBC 3.44 10x6/uL (4.00-5.40); RDW 18.3 % (11.5-14.5); WBC 15.8 10x3/uL (4.8-10.8)
[2017-11-30 05:47] LABS: BILIRUBIN - TOTAL 0.6 mg/dL (0.2-1.3); CARBON DIOXIDE 26.5 mmol/L (21.0-32.0); CREATININE - SERUM 6.8 mg/dL (0.6-1.3); POTASSIUM - SERUM 4.5 mmol/L (3.5-5.1); PROTEIN - SERUM 5.4 g/dL (6.4-8.2)
[2017-11-30 05:50] LABS: CALCIUM 5.7 mg/dL (8.5-10.1)
[2017-12-01] VITALS (23 sets, daily range): BP systolic 88–126; BP diastolic 33–89
[2017-12-01 05:12] LABS: BASOPHILS 0.2 % (0-2); EOSINOPHILS 0.6 % (0-7); HEMATOCRIT 28.1 % (36.0-48.0); HEMOGLOBIN 8.6 g/dL (12-16); IMMATURE GRANULOCYTES 4.4 % (0-5); LYMPHOCYTES 14.5 % (15-50); MCHC 30.6 g/dL (31.0-37.0); MCV 91.5 fL (80.0-100.0); MEAN PLATELET VOLUME 10.5 fL (7.4-10.4); MONOCYTES 4.1 % (2-11); NEUTROPHILS 76.2 % (40-80); PLATELET COUNT 277 10x3/uL (130-400); RBC 3.07 10x6/uL (4.00-5.40); RDW 18.2 % (11.5-14.5)
[2017-12-01 05:16] LABS: WBC 9.3 10x3/uL (4.8-10.8)
[2017-12-01 05:37] LABS: ALBUMIN 1.9 g/dL (3.4-5.0); BILIRUBIN - TOTAL 0.5 mg/dL (0.2-1.3); CARBON DIOXIDE 24.9 mmol/L (21.0-32.0); PROTEIN - SERUM 5.8 g/dL (6.4-8.2)
[2017-12-01 05:53] LABS: ANION GAP 22.9 mmol/L (8-16); POTASSIUM - SERUM 3.8 mmol/L (3.5-5.1)
[2017-12-02] VITALS (24 sets, daily range): BP systolic 91–131; BP diastolic 46–104
[2017-12-02 05:42] LABS: ANION GAP 33.1 mmol/L (8-16); BILIRUBIN - TOTAL 0.6 mg/dL (0.2-1.3); CARBON DIOXIDE 20.5 mmol/L (21.0-32.0); CREATININE - SERUM 8.5 mg/dL (0.6-1.3); POTASSIUM - SERUM 3.6 mmol/L (3.5-5.1); PROTEIN - SERUM 6.1 g/dL (6.4-8.2)
[2017-12-02 05:49] LABS: CALCIUM 5.9 mg/dL (8.5-10.1)
[2017-12-02 05:59] LABS: BASOPHILS 0.2 % (0-2); EOSINOPHILS 0.7 % (0-7); HEMATOCRIT 26.7 % (36.0-48.0); HEMOGLOBIN 8.3 g/dL (12-16); IMMATURE GRANULOCYTES 3.8 % (0-5); LYMPHOCYTES 14.7 % (15-50); MCH 28.7 pg (26.0-34.0); MCHC 31.1 g/dL (31.0-37.0); MCV 92.4 fL (80.0-100.0); MEAN PLATELET VOLUME 10.6 fL (7.4-10.4); MONOCYTES 4.6 % (2-11); PLATELET COUNT 328 10x3/uL (130-400); RBC 2.89 10x6/uL (4.00-5.40); WBC 10.9 10x3/uL (4.8-10.8)
[2017-12-03] VITALS (14 sets, daily range): BP systolic 96–142; BP diastolic 34–93
[2017-12-03 04:33] LABS: BASOPHILS 0.1 % (0-2); EOSINOPHILS 0.3 % (0-7); HEMATOCRIT 27.9 % (36.0-48.0); HEMOGLOBIN 8.4 g/dL (12-16); IMMATURE GRANULOCYTES 2.3 % (0-5); LYMPHOCYTES 9.1 % (15-50); MCH 28.1 pg (26.0-34.0); MCHC 30.1 g/dL (31.0-37.0); MCV 93.3 fL (80.0-100.0); MONOCYTES 6.9 % (2-11); NEUTROPHILS 81.3 % (40-80); PLATELET COUNT 337 10x3/uL (130-400); RBC 2.99 10x6/uL (4.00-5.40); RDW 17.6 % (11.5-14.5)
[2017-12-03 04:37] LABS: WBC 13.8 10x3/uL (4.8-10.8)
[2017-12-03 04:45] LABS: CARBON DIOXIDE 23.9 mmol/L (21.0-32.0)
[2017-12-03 04:50] LABS: CREATININE - SERUM 5.1 mg/dL (0.6-1.3)
[2017-12-03 04:51] LABS: ANION GAP 23.8 mmol/L (8-16); CALCIUM 6.6 mg/dL (8.5-10.1); POTASSIUM - SERUM 2.7 mmol/L (3.5-5.1)
[2017-12-03 14:23] LABS: HEPATITIS C ANTIBODY 0.1 (0.0-0.9)
[2017-12-04] VITALS: BP 128/53
[2017-12-04 04:00] VITALS: BP 112/57
[2017-12-04 05:45] LABS: BASOPHILS 0.1 % (0-2); EOSINOPHILS 0.1 % (0-7); HEMATOCRIT 28.2 % (36.0-48.0); HEMOGLOBIN 8.7 g/dL (12-16); IMMATURE GRANULOCYTES 1.8 % (0-5); LYMPHOCYTES 8.8 % (15-50); MCH 28.6 pg (26.0-34.0); MCHC 30.9 g/dL (31.0-37.0); MCV 92.8 fL (80.0-100.0); MONOCYTES 7.9 % (2-11); NEUTROPHILS 81.3 % (40-80); PLATELET COUNT 332 10x3/uL (130-400); RBC 3.04 10x6/uL (4.00-5.40); RDW 17.4 % (11.5-14.5); WBC 16.5 10x3/uL (4.8-10.8)
[2017-12-04 06:00] LABS: ANION GAP 23.8 mmol/L (8-16); CALCIUM 7.3 mg/dL (8.5-10.1); CARBON DIOXIDE 22.4 mmol/L (21.0-32.0); CREATININE - SERUM 7.3 mg/dL (0.6-1.3); MAGNESIUM - SERUM 1.9 mg/dL (1.8-2.4); PHOSPHOROUS 8.2 mg/dL (2.5-4.9); POTASSIUM - SERUM 3.2 mmol/L (3.5-5.1)
[2017-12-04 08:02] VITALS: BP 126/77
[2017-12-04 16:51] VITALS: BP 122/69
[2017-12-04 21:04] VITALS: BP 121/61
[2017-12-05 00:34] VITALS: BP 128/57
[2017-12-05 05:37] VITALS: BP 124/57
[2017-12-05 05:48] LABS: BASOPHILS 0.2 % (0-2); EOSINOPHILS 0.3 % (0-7); HEMATOCRIT 26.2 % (36.0-48.0); HEMOGLOBIN 7.8 g/dL (12-16); IMMATURE GRANULOCYTES 1.5 % (0-5); MCH 28.2 pg (26.0-34.0); MCHC 29.8 g/dL (31.0-37.0); MCV 94.6 fL (80.0-100.0); MEAN PLATELET VOLUME 9.5 fL (7.4-10.4); MONOCYTES 8.1 % (2-11); NEUTROPHILS 79.9 % (40-80); PLATELET COUNT 382 10x3/uL (130-400); RBC 2.77 10x6/uL (4.00-5.40); RDW 17.4 % (11.5-14.5); WBC 13.1 10x3/uL (4.8-10.8)
[2017-12-05 06:17] LABS: ANION GAP 20.1 mmol/L (8-16); CALCIUM 7.8 mg/dL (8.5-10.1); CARBON DIOXIDE 23.5 mmol/L (21.0-32.0); CREATININE - SERUM 4.7 mg/dL (0.6-1.3); PHOSPHOROUS 5.6 mg/dL (2.5-4.9)
[2017-12-05 06:19] LABS: POTASSIUM - SERUM 2.6 mmol/L (3.5-5.1)
[2017-12-05 08:06] VITALS: BP 121/73
[2017-12-05 16:45] VITALS: BP 124/66
[2017-12-05 20:00] VITALS: BP 135/59
[2017-12-06] VITALS: BP 128/60
[2017-12-06 05:38] LABS: BASOPHILS 0.2 % (0-2); EOSINOPHILS 0.2 % (0-7); HEMOGLOBIN 8.1 g/dL (12-16); IMMATURE GRANULOCYTES 0.7 % (0-5); LYMPHOCYTES 11.3 % (15-50); MCH 28.4 pg (26.0-34.0); MCV 94.7 fL (80.0-100.0); MEAN PLATELET VOLUME 9.3 fL (7.4-10.4); MONOCYTES 7.7 % (2-11); NEUTROPHILS 79.9 % (40-80); PLATELET COUNT 456 10x3/uL (130-400); RBC 2.85 10x6/uL (4.00-5.40); RDW 17.6 % (11.5-14.5); WBC 12.4 10x3/uL (4.8-10.8)
[2017-12-06 05:52] LABS: ANION GAP 19.5 mmol/L (8-16); CALCIUM 7.7 mg/dL (8.5-10.1); CARBON DIOXIDE 23.2 mmol/L (21.0-32.0); PHOSPHOROUS 6.4 mg/dL (2.5-4.9)
[2017-12-06 06:07] LABS: CREATININE - SERUM 6.7 mg/dL (0.6-1.3)
[2017-12-06 06:08] LABS: POTASSIUM - SERUM 2.7 mmol/L (3.5-5.1)
[2017-12-06 08:43] VITALS: BP 134/49
[2017-12-06 11:59] VITALS: BP 127/48
[2017-12-06 16:07] VITALS: BP 156/60
[2017-12-06 20:00] VITALS: BP 133/64
[2017-12-07] VITALS: BP 132/61
[2017-12-07 04:00] VITALS: BP 148/57
[2017-12-07 06:41] LABS: BASOPHILS 0.3 % (0-2); EOSINOPHILS 0.5 % (0-7); HEMATOCRIT 28.3 % (36.0-48.0); HEMOGLOBIN 8.5 g/dL (12-16); IMMATURE GRANULOCYTES 0.9 % (0-5); LYMPHOCYTES 12.5 % (15-50); MCH 28.3 pg (26.0-34.0); MCV 94.3 fL (80.0-100.0); MEAN PLATELET VOLUME 9.6 fL (7.4-10.4); MONOCYTES 7.9 % (2-11); NEUTROPHILS 77.9 % (40-80); RDW 17.9 % (11.5-14.5); WBC 11.7 10x3/uL (4.8-10.8)
[2017-12-07 06:44] LABS: PLATELET COUNT 595 10x3/uL (130-400)
[2017-12-07 07:00] LABS: CALCIUM 7.4 mg/dL (8.5-10.1); CARBON DIOXIDE 23.3 mmol/L (21.0-32.0); CREATININE - SERUM 8.2 mg/dL (0.6-1.3); POTASSIUM - SERUM 3.3 mmol/L (3.5-5.1)
[2017-12-07 08:32] VITALS: BP 140/53
[2017-12-07 15:40] VITALS: BP 122/50
[2017-12-07 20:00] VITALS: BP 115/46
[2017-12-08 01:43] VITALS: BP 123/57
[2017-12-08 04:49] VITALS: BP 109/44
[2017-12-08 05:59] LABS: BASOPHILS 0.1 % (0-2); EOSINOPHILS 0.5 % (0-7); HEMATOCRIT 28.2 % (36.0-48.0); HEMOGLOBIN 8.4 g/dL (12-16); IMMATURE GRANULOCYTES 0.7 % (0-5); LYMPHOCYTES 15.8 % (15-50); MCH 28.4 pg (26.0-34.0); MCHC 29.8 g/dL (31.0-37.0); MCV 95.3 fL (80.0-100.0); MEAN PLATELET VOLUME 9.1 fL (7.4-10.4); MONOCYTES 7.8 % (2-11); NEUTROPHILS 75.1 % (40-80); PLATELET COUNT 556 10x3/uL (130-400); RBC 2.96 10x6/uL (4.00-5.40); RDW 17.6 % (11.5-14.5); WBC 10.6 10x3/uL (4.8-10.8)
[2017-12-08 06:45] LABS: ANION GAP 20.4 mmol/L (8-16); CALCIUM 7.7 mg/dL (8.5-10.1); CARBON DIOXIDE 24.9 mmol/L (21.0-32.0); POTASSIUM - SERUM 3.3 mmol/L (3.5-5.1)
[2017-12-08 06:52] LABS: CREATININE - SERUM 4.8 mg/dL (0.6-1.3); PHOSPHOROUS 4.1 mg/dL (2.5-4.9)
[2017-12-08 08:33] VITALS: BP 120/43
[2017-12-08 11:40] VITALS: BP 137/65
[2017-12-08 16:02] VITALS: BP 148/69
[2017-12-08 20:00] VITALS: BP 144/56
[2017-12-09] VITALS: BP 137/70
[2017-12-09 04:00] VITALS: BP 143/69
[2017-12-09 08:29] VITALS: BP 165/61
[2017-12-09 15:37] VITALS: BP 140/70
== END 2017-12-09 15:46 | disposition home or self-care (01) | DRG 870 ==
LOC: D.ICU 22:29 → D.M2 23:36 → D.ICU 23:36 → D.M2 12-03 13:06
PROVIDERS: Internal Medicine; Internal Medicine Nephrology; Internal Medicine Pulmonary Disease
PROC: 5A1955Z Respiratory Ventilation, Greater than 96 Consecutive Hours (ICD-10-PCS; principal; 2017-11-28)
PROC: 0BH17EZ Insertion of Endotracheal Airway into Trachea, Via Natural or Artificial Opening (ICD-10-PCS; 2017-11-28)
PROC: 0DH63UZ Insertion of Feeding Device into Stomach, Percutaneous Approach (ICD-10-PCS; 2017-12-08)
DX: A41.9 Sepsis, unspecified organism (principal); R65.21 Severe sepsis with septic shock; N18.6 End stage renal disease; I46.9 Cardiac arrest, cause unspecified; I50.23 Acute on chronic systolic (congestive) heart failure; J69.0 Pneumonitis due to inhalation of food and vomit; G93.41 Metabolic encephalopathy; R53.2 Functional quadriplegia; I12.0 Hypertensive chronic kidney disease with stage 5 chronic kidney disease or end stage renal disease; J98.11 Atelectasis; E87.2 Acidosis; E87.0 Hyperosmolality and hypernatremia; I13.2 Hypertensive heart and chronic kidney disease with heart failure and with stage 5 chronic kidney disease, or end stage renal disease; E46 Unspecified protein-calorie malnutrition; Z68.1 Body mass index [BMI] 19.9 or less, adult; E11.22 Type 2 diabetes mellitus with diabetic chronic kidney disease; Z99.2 Dependence on renal dialysis; I69.920 Aphasia following unspecified cerebrovascular disease; E87.5 Hyperkalemia; E88.09 Other disorders of plasma-protein metabolism, not elsewhere classified; E83.39 Other disorders of phosphorus metabolism; D64.9 Anemia, unspecified; D72.829 Elevated white blood cell count, unspecified; R00.1 Bradycardia, unspecified; I95.9 Hypotension, unspecified